=== PATIENT | female | born 1985 | race Caucasian/White ===

== ENCOUNTER 2017-05-03 19:11 | Emergency (ER) | payer OTHER ==
[~2017-05-03] VITALS: Ht 170.2 cm; Wt 49.0 kg
[2017-05-03] MEDS ORDERED: LORTAB 1010 MG PO (21:05)
[2017-05-03 21:40] VITALS: BP 111/79
== END 2017-05-03 21:40 | disposition home or self-care (01) | DRG 552 ==
LOC: ED 19:11
DX: S16.1XXA Strain of muscle, fascia and tendon at neck level, initial encounter (principal); G54.0 Brachial plexus disorders; G62.9 Polyneuropathy, unspecified; F17.210 Nicotine dependence, cigarettes, uncomplicated; V43.54XA Car driver injured in collision with van in traffic accident, initial encounter

== ENCOUNTER 2017-05-26 16:14 | Emergency (ER) | payer SELFPAY ==
[~2017-05-26] VITALS: Ht 170.2 cm; Wt 46.0 kg
[~2017-05-26 16:14] MED LIST: LORTAB 1010 MG PO
[2017-05-26 17:53] LABS: HEMATOCRIT 36.4 % (37.0-47.0); HEMOGLOBIN 12.4 g/dl (12.0-16.0); IMMATURE GRANULOCYTES 0.3 % (0.0-1.0); MEAN CELL VOLUME 97.6 fL CALC (80.0-100.0); MEAN CORPUSCULAR HGB 33.2 pG CALC (26.0-32.0); MEAN CORPUSCULAR HGB CONC 34.1 g/L CALC (32.0-36.0); NEUT# 9.81 thou/uL (2.00-7.15); RED BLOOD COUNT 3.73 mill/uL (4.20-5.60); RED CELL DISTRI WIDTH 11.8 % (11.5-15.5)
[2017-05-26 18:16] LABS: ALBUMIN 4.2 g/dL (3.2-5.0); ALKALINE PHOSPHATASE 42 u/l (38-126); ANION GAP 16 (6-22 (CALC)); BILIRUBIN, TOTAL 0.8 mg/dL (0.0-1.4); BUN 9 mg/dL (7-17); BUN/CREATININE RATIO 15 (12-20 (CALC)); CARBON DIOXIDE 22 mmol/l (22-30); CHLORIDE 105 mmol/l (95-108); CREATININE 0.6 mg/dL (0.5-1.0); GFR > 60 ML/MIN (>=60 (CALC)); GFR FOR AFR.AMER. > 60 ML/MIN (>=60 (CALC)); POTASSIUM 3.5 mmol/l (3.5-5.1); SGOT/AST 36 u/l (14-36); SGPT/ALT 12 u/l (9-52); SODIUM 140 mmol/l (137-146)
[2017-05-26 19:22] LABS: URINE BILIRUBIN - DIPSTICK NEGATIVE (NEGATIVE); URINE BLOOD DIPSTICK LARGE (NEGATIVE); URINE GLUCOSE - DIPSTICK NEGATIVE (NEGATIVE); URINE KETONE 40 mg/dL (NEGATIVE); URINE LEUK ESTERASE TRACE (NEGATIVE); URINE PH 7.5 (4.5-8.0); URINE PROTEIN - DIPSTICK 100 mg/dL (NEG-TRACE)
[2017-05-26 19:30] LABS: URINE NITRITE - DIPSTICK POSITIVE (Negative)
[2017-05-26 19:31] LABS: URINE CLARITY CLOUDY; URINE COLOR RED
[2017-05-26 19:32] LABS: URINE BACTERIA FEW hpf; URINE RBC TNTC RBC/hpf (0-5); URINE SQUAMOUS EPITHELIAL CELL FEW EPI/hpf (0-FEW)
[2017-05-27 00:22] VITALS: BP 98/57
== END 2017-05-27 00:29 | disposition home or self-care (01) | DRG 761 ==
LOC: ED 16:14
PROVIDERS: Emergency Medicine; Family Medicine
DX: N93.9 Abnormal uterine and vaginal bleeding, unspecified (principal); G62.9 Polyneuropathy, unspecified; F17.210 Nicotine dependence, cigarettes, uncomplicated

== ENCOUNTER 2019-03-16 | Emergency (ER) | payer BC | END 2019-03-16 19:55 | disposition home or self-care (01) | DRG 605 | DX: S90.32XA Contusion of left foot, initial encounter (principal); G62.9 Polyneuropathy, unspecified; F17.210 Nicotine dependence, cigarettes, uncomplicated; W22.8XXA Striking against or struck by other objects, initial encounter; Y92.009 Unspecified place in unspecified non-institutional (private) residence as the place of occurrence of the external cause ==

== ENCOUNTER 2019-10-05 11:24 | Emergency (ER) | payer BC ==
[~2019-10-05] VITALS: Ht 170.2 cm; Wt 47.7 kg
[2019-10-05] MEDS ORDERED: PAIN RELIEF EX500 M2 PO (11:54)
[2019-10-05] MEDS ORDERED: ADVIL200 MG PO (11:55)
[2019-10-05 12:14] LABS: URINE BILIRUBIN - DIPSTICK NEGATIVE (NEGATIVE); URINE BLOOD DIPSTICK NEGATIVE (NEGATIVE); URINE CLARITY CLEAR; URINE COLOR YELLOW; URINE GLUCOSE - DIPSTICK NEGATIVE (NEGATIVE); URINE KETONE NEGATIVE (NEGATIVE); URINE LEUK ESTERASE SMALL (Negative); URINE NITRITE - DIPSTICK NEGATIVE (Negative); URINE PH 6.5 (4.5-8.0); URINE PROTEIN - DIPSTICK NEGATIVE (NEG-TRACE); URINE UROBILINOGEN - DIPSTICK 0.2 E.U./dL (0.2)
[2019-10-05 12:23] LABS: HCG SERUM/URINE (NEG/POS) NEGATIVE (NEGATIVE)
[2019-10-05 12:25] LABS: URINE SQUAMOUS EPITHELIAL CELL FEW EPI/hpf (0-FEW)
[2019-10-05 13:15] VITALS: BP 92/62
[2019-10-05] MEDS ORDERED: KEFLEX500 M1 PO (13:26)
== END 2019-10-05 13:41 | disposition home or self-care (01) | DRG 204 ==
LOC: ED 11:24
DX: R05 Cough (principal); N39.0 Urinary tract infection, site not specified; R52 Pain, unspecified; J02.9 Acute pharyngitis, unspecified; G62.9 Polyneuropathy, unspecified; F17.210 Nicotine dependence, cigarettes, uncomplicated; Z20.828 Contact with and (suspected) exposure to other viral communicable diseases

== ENCOUNTER 2021-02-28 14:12 | Emergency (ER) | payer SELFPAY ==
[~2021-02-28] VITALS: Ht 170.2 cm; Wt 70.0 kg
[~2021-02-28 14:12] MED LIST changes: +ADVIL200 MG PO; +KEFLEX500 M1 PO; +PAIN RELIEF EX500 M2 PO
[2021-02-28 16:28] LABS: HEMATOCRIT 37.1 % (37.0-47.0); HEMOGLOBIN 12.5 g/dl (12.0-16.0); IMMATURE GRANULOCYTES 0.1 % (0.0-5.0); MEAN CELL VOLUME 94.6 fL CALC (80.0-100.0); MEAN CORPUSCULAR HGB 31.9 pG CALC (26.0-32.0); MEAN CORPUSCULAR HGB CONC 33.7 g/dL CAL (32.0-36.0); NEUT# 4.49 thou/uL (2.00-7.15); RED BLOOD COUNT 3.92 mill/uL (4.20-5.60); RED CELL DISTRI WIDTH 11.9 % (11.5-15.5)
[2021-02-28 16:39] LABS: ALBUMIN 4.1 g/dL (3.2-5.0); BILIRUBIN, TOTAL 0.5 mg/dL (0.0-1.4); CREATININE 1.3 mg/dL (0.5-1.0)
[2021-02-28 18:58] VITALS: BP 103/58
== END 2021-02-28 18:58 | disposition home or self-care (01) | DRG 103 ==
LOC: ED 14:12
PROVIDERS: Family Medicine
DX: R51.9 Headache, unspecified (principal); G62.9 Polyneuropathy, unspecified; F17.290 Nicotine dependence, other tobacco product, uncomplicated
CPT/HCPCS: Q9967

== ENCOUNTER 2021-04-10 12:29 | Emergency (ER) | payer BC ==
[~2021-04-10] VITALS: Ht 170.2 cm; Wt 52.0 kg
[2021-04-10] MEDS ORDERED: TORADOL PO (16:15)
[2021-04-10] MEDS ORDERED: FLONASE AL50 MCG/AC1 NAB (16:15)
[2021-04-10] MEDS ORDERED: MUCINEX D1 TAB PO (16:15)
[2021-04-10 16:18] VITALS: BP 110/56
== END 2021-04-10 16:40 | disposition home or self-care (01) | DRG 179 ==
LOC: ED 12:29
DX: U07.1 COVID-19 (principal); G62.9 Polyneuropathy, unspecified; F17.200 Nicotine dependence, unspecified, uncomplicated

== ENCOUNTER 2021-10-02 04:29 | Emergency (ER) | payer BC ==
[2021-10-02] VITALS (7 sets, daily range): BP systolic 91–103; BP diastolic 67–80
[~2021-10-02] VITALS: Ht 170.2 cm; Wt 50.0 kg
[~2021-10-02 04:29] MED LIST changes: +FLONASE AL50 MCG/AC1 NAB; +MUCINEX D1 TAB PO; +TORADOL PO
== END 2021-10-02 06:30 | disposition home or self-care (01) | DRG 153 ==
LOC: ED 04:29
DX: J06.9 Acute upper respiratory infection, unspecified (principal); G62.9 Polyneuropathy, unspecified; F17.200 Nicotine dependence, unspecified, uncomplicated; Z20.822 Contact with and (suspected) exposure to COVID-19

== ENCOUNTER 2022-01-20 17:22 | Emergency (ER) | payer BC ==
[~2022-01-20] VITALS: Ht 170.2 cm; Wt 50.0 kg
[2022-01-20 17:27] VITALS: BP 125/93
[2022-01-20 17:30] VITALS: BP 111/80
[2022-01-20] MEDS ORDERED: BACTRIM DS1 TAB PO (17:31)
[2022-01-20 18:00] VITALS: BP 110/81
[2022-01-20 18:30] VITALS: BP 114/82
[2022-01-20 19:00] VITALS: BP 114/82
[2022-01-20] MEDS ORDERED: NAPROXEN500 MG PO (19:07)
[2022-01-20 19:12] VITALS: BP 114/82
== END 2022-01-20 19:20 | disposition home or self-care (01) | DRG 563 ==
LOC: ED 17:22
DX: S83.92XA Sprain of unspecified site of left knee, initial encounter (principal); G62.9 Polyneuropathy, unspecified; F17.200 Nicotine dependence, unspecified, uncomplicated; X50.0XXA Overexertion from strenuous movement or load, initial encounter; X50.9XXA Other and unspecified overexertion or strenuous movements or postures, initial encounter; Y93.89 Activity, other specified
CPT/HCPCS: L1830

== ENCOUNTER 2022-03-11 08:25 | Emergency (ER) | payer BC ==
[~2022-03-11] VITALS: Ht 170.2 cm; Wt 50.0 kg
[~2022-03-11 08:25] MED LIST changes: +BACTRIM DS1 TAB PO; +NAPROXEN500 MG PO
[2022-03-11 08:43] VITALS: BP 119/78
[2022-03-11 09:00] VITALS: BP 123/79
[2022-03-11] MEDS ORDERED: IBUPROFEN600 MG PO (09:31)
== END 2022-03-11 09:40 | disposition home or self-care (01) | DRG 554 ==
LOC: ED 08:25
DX: M13.871 Other specified arthritis, right ankle and foot (principal); M79.671 Pain in right foot